=== PATIENT | male | born 1955 | race African-American/Black ===

== ENCOUNTER 2021-07-12 21:16 | Emergency (ER) | payer OTHER ==
[~2021-07-12] VITALS: Ht 175.3 cm; Wt 86.2 kg
[2021-07-13] MEDS ORDERED: TRICON CAPSULE1 EACH PO (05:53)
[2021-07-13] MEDS ORDERED: PROTECT IRON T1 EACH PO (05:53)
[2021-07-13] MEDS ORDERED: PEPCID40 MG PO (05:57)
[2021-07-13] MEDS ORDERED: LEVSIN/SL0.125 MG SL (05:57)
== END 2021-07-13 06:02 ==
LOC: ER 21:16
DX: R10.13 Epigastric pain (principal); K29.70 Gastritis, unspecified, without bleeding; K52.9 Noninfective gastroenteritis and colitis, unspecified; K70.31 Alcoholic cirrhosis of liver with ascites

== ENCOUNTER 2022-10-15 18:54 | Emergency (ER) | payer OTHER ==
[~2022-10-15] VITALS: Ht 175.3 cm; Wt 72.6 kg
[~2022-10-15 18:54] MED LIST: LEVSIN/SL0.125 MG SL; PEPCID40 MG PO; PROTECT IRON T1 EACH PO; TRICON CAPSULE1 EACH PO
[2022-10-15] MEDS ORDERED: SPIRONOLACTONE100 MG PO (19:39)
[2022-10-16] MEDS ORDERED: CEPHALEXIN500 MG PO (01:57)
[2022-10-16] MEDS ORDERED: DOLOGESIC-DF 51 EACH PO (01:57)
== END 2022-10-16 02:20 ==
LOC: ER 18:54
PROVIDERS: General Practice
DX: S30.1XXA Contusion of abdominal wall, initial encounter (principal); S10.0XXA Contusion of throat, initial encounter; W18.30XA Fall on same level, unspecified, initial encounter; Y93.9 Activity, unspecified; Y92.9 Unspecified place or not applicable; Y99.9 Unspecified external cause status; N39.0 Urinary tract infection, site not specified
CPT/HCPCS: 36415; 71260; 96372; 99284; J0696; Q9965